=== PATIENT | male | born 1995 | race Caucasian/White ===

== ENCOUNTER 2024-07-04 15:56 | Emergency (ER) | payer SELFPAY ==
[2024-07-04 16:16] VITALS: TEMP 97.8; O2SAT 99
[2024-07-04] MEDS ORDERED: BACIGUENT 30 GM ONE (16:25)
[2024-07-04] MEDS ORDERED: Adacel Vial IM ONE (16:27)
[2024-07-04] MEDS: BACIGUENT 30 GM TP SCH (16:28)
[2024-07-04] MEDS: Adacel Vial IM ONE (16:29)
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
[2024-07-04 16:48] VITALS: BP 120/74; PULSE 63; RESP 19
== END 2024-07-04 16:45 | disposition home or self-care (01) ==
LOC: ED 15:56
DX: T24.212A Burn of second degree of left thigh, initial encounter (principal); T24.232A Burn of second degree of left lower leg, initial encounter; T24.231A Burn of second degree of right lower leg, initial encounter; X03.0XXA Exposure to flames in controlled fire, not in building or structure, initial encounter; Y93.H2 Activity, gardening and landscaping; Z79.899 Other long term (current) drug therapy; Z72.0 Tobacco use; Z23 Encounter for immunization
CPT/HCPCS: 90471; 90715; 99282; A9270-GY

== ENCOUNTER 2025-03-23 17:23 | Emergency (ER) | payer BC ==
[2025-03-23 18:35] VITALS: BP 116/68; PULSE 65; TEMP 98.2; O2SAT 100
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
--- NOTE | 2025-03-24 09:00 | XRAY ---
Indication: Pain following injury 3 days ago. Comparison: None 3 view right 2nd finger demonstrates distal soft tissue swelling. No other bony, articular, or soft tissue abnormalities.
== END 2025-03-23 19:10 | disposition home or self-care (01) ==
LOC: ED 17:23
DX: S67.190A Crushing injury of right index finger, initial encounter (principal); S60.121A Contusion of right index finger with damage to nail, initial encounter; W20.8XXA Other cause of strike by thrown, projected or falling object, initial encounter
CPT/HCPCS: 73140; 99282; 99283